=== PATIENT | female | born 1970 | race Caucasian/White ===

== ENCOUNTER 2024-03-03 10:59 | Outpatient (CLI) | payer BC, SELFPAY | END 2024-03-03 11:00 | disposition home or self-care (01) | LOC: NFLDREF 11:00 | PROVIDERS: PCP Registered Nurse; Visit Provider Registered Nurse | DX: N94.9 Unspecified condition associated with female genital organs and menstrual cycle (principal); Z11.3 Encounter for screening for infections with a predominantly sexual mode of transmission | CPT/HCPCS: 87252 ==